=== PATIENT | male | born 1970 | race Caucasian/White ===

== ENCOUNTER → 2020-07-18 | Outpatient (CLI) | payer SELFPAY ==
[~2020-07-18] VITALS: Ht 175.3 cm; Wt 99.8 kg
== END | disposition home or self-care (01) ==
LOC: Rad HDHVI 14:58
PROVIDERS: ATTEND Internal Medicine Cardiovascular Disease
DX: F17.210 Nicotine dependence, cigarettes, uncomplicated (principal); R07.9 Chest pain, unspecified; J45.909 Unspecified asthma, uncomplicated
CPT/HCPCS: 93017

== ENCOUNTER → 2020-07-22 | Outpatient (CLI) | payer SELFPAY | END | disposition home or self-care (01) | LOC: Rad HDHVI 09:38 | PROVIDERS: ATTEND Internal Medicine Cardiovascular Disease | DX: R00.2 Palpitations (principal); R06.02 Shortness of breath; R07.89 Other chest pain | CPT/HCPCS: 93306 ==